=== PATIENT | female | born 1955 | race Two or more races ===

== ENCOUNTER 2022-09-04 07:40 | Outpatient (CLI) | payer MEDICARE, MEDICAID ==
[~2022-09-04] VITALS: Ht 162.6 cm; Wt 135.2 kg
[2022-09-04] MEDS ORDERED: regadenoson 0.4mg/5ml syringe IV ONE (08:25)
[2022-09-04] MEDS ORDERED: normal saline 500ml IV soln 500 ML IV ONE (08:25)
[2022-09-04] MEDS ORDERED: aminophylline 250mg/10ml inj. IV PRN (08:25)
[2022-09-04] MEDS ORDERED: nitroGLYCERIN 0.4mg SUBLingual tab SL PRN (08:25)
[2022-09-04 09:35] VITALS: BP 149/82
[2022-09-04 09:46] VITALS: BP 152/79
[2022-09-04 09:48] VITALS: BP 155/80
[2022-09-04 09:49] VITALS: BP_SYST 155; BP_SYST 165; BP_DIAS 77; BP_DIAS 80
[2022-09-04 09:50] VITALS: BP_SYST 143; BP_SYST 148; BP_DIAS 75; BP_DIAS 77
== END 2022-09-04 23:59 | disposition home or self-care (01) ==
LOC: RAD 07:40
PROVIDERS: ATTEND Internal Medicine Cardiovascular Disease
DX: I45.10 Unspecified right bundle-branch block (principal); R94.31 Abnormal electrocardiogram [ECG] [EKG]
CPT/HCPCS: 78452; 93017; A9500; J2785; J7040; J0280